=== PATIENT | female | born 1995 | race Asian ===

== ENCOUNTER 2017-03-12 08:31 | Observation (INO) | payer OTHER ==
[2017-03-12] MEDS ORDERED: ONDANSETRON 4 MG/2 ML VIAL ONE ×2 (08:42→14:27)
--- NOTE | 2017-03-12 08:57 | EDPHY ---
H & P Time Seen by Provider: 03/12/17 08:40 HPI/ROS: CHIEF COMPLAINT: Abdominal pain HISTORY OF PRESENT ILLNESS: The patient is a 21-year-old female who presents emergency department with abdominal pain. Patient states the pain makes her "feel like I am passing out. "The patient states her pain started 11:00 p.m. last night. She woke at 5:00 a.m. this morning with more significant pain. She describes diffuse abdominal pain in all quadrants. She has had nausea but no vomiting or diarrhea. No fevers or chills. No dysuria or frequency. The patient states her menstrual period has been irregular. Her last period was early February. She is sexually active but is on control. She has had no vaginal discharge or bleeding. REVIEW OF SYSTEMS: My complete review of systems is negative except as mentioned in the HPI. Past Medical/Surgical History: GERD Past surgical history: Negative Social history: The patient does not smoke use alcohol. Smoking Status: Never smoked Physical Exam: Vitals noted GENERAL: No acute distress, alert. HEENT: Eyes normal to inspection, normal pharynx, no signs of dehydration. NECK: No thyromegaly, no lymphadenopathy, supple. RESPIRATORY: Clear to auscultation bilaterally, no rales, rhonchi or wheezing. CVS: Regular rate and rhythm, no rubs, murmurs, or gallops. ABDOMEN: Soft, minimal diffuse tenderness. No rebound or guarding. Nondistended, no organomegaly. BACK: Normal to inspection, no CVA tenderness. SKIN: Normal color, no rash, warm, dry. No pallor. EXTREMITIES: No pedal edema, no calf tenderness, no Homans sign or cords, no joint swelling. NEURO/PSYCH: Alert and oriented, normal mood and affect, normal motor sensory exam. Constitutional: Initial Vital Signs Temperature (C) 36.4 C 03/12/17 08:33 Heart Rate 84 03/12/17 08:33 Respiratory Rate 19 03/12/17 08:33 Blood Pressure 124/93 H 03/12/17 08:33 O2 Sat (%) 99 03/12/17 08:33 O2 Delivery Mode Room Air Allergies/Adverse Reactions: No Known Allergies Allergy (Unverified 03/12/17 08:33) Home Medications: Medication Instructions Recorded Alon 21 1-20 Tablet 03/12/17 Medical Decision Making - Diagnostics Imaging Results: Imaging Impressions Pelvic/Renal Ultrasound 03/12/17 08:59 Impression: Normal ultrasound pelvis. Findings and recommendations discussed with Emergency Department physician, RAZIA ENG at 9:30 hour, 03/12/2017. Final report concurs with initial preliminary interpretation. Abdomen CT 03/12/17 10:45 Impression: 1. Early acute appendicitis. 2. No bowel obstruction, abscess or pneumoperitoneum. Findings and recommendations discussed with Emergency Department physician, Razia Eng at 1100 hour, 03/12/2017. Final report concurs with initial preliminary interpretation. Cosign: Dr. Kris Gusman. ED Course/Re-evaluation: In the emergency department I discussed possible etiologies with the patient. I answered all her questions. IV was placed. Patient was given Zofran 4 mg IV for nausea. She was given fentanyl 50 mcg IV for pain. Laboratory studies and ultrasound were ordered. 912: [place] [id number]. Ultrasound: Please refer the dictated report by Dr. Jones. No acute disease noted. The patient refused transvaginal exam. On recheck, the patient states she is feeling much better but still has lower abdominal discomfort. She points to the suprapubic and left lower quadrant. Patient consents to a pelvic exam. FEMALE : Patient has a normal external pelvic exam. No lesions or discharge. Speculum exam shows mild white discharge from the cervix. No cervical lesions. Normal appearing cervix. Bimanual exam: Normal, no tenderness to palpation bilaterally, normal ovaries bilaterally, normal uterus. Cultures were sent. Because the patient has significantly elevated white count and still has mild abdominal discomfort a CT scan was ordered. CT of the abdomen pelvis: Please refer the dictated report. Dr. Jones feels patient has early appendicitis. Appendix is enlarged. I discussed the results with the patient. I answered all her questions. I paged Dr. Pope. Dr. Pope was emergency department to evaluate the patient. Patient was given Invanz 1 g IV. Differential Diagnosis: My differential includes but is not limited to small-bowel obstruction, perforation, GERD, pancreatitis, cholecystitis, electrolyte abnormality, sugar abnormality, ovarian cyst, ovarian torsion, , ectopic - Data Points Laboratory Results: Laboratory Results 03/12/17 09:00 03/12/17 09:00 03/12/17 03/12/17 03/12/17 11:00 10:45 10:45 WBC RBC Hgb Hct MCV MCH MCHC RDW Plt Count MPV Neut % (Auto) Lymph % (Auto) Chester % (Auto) Eos % (Auto) Baso % (Auto) Nucleat RBC Rel Count Absolute Neuts (auto) Absolute Lymphs (auto) Absolute Monos (auto) Absolute Eos (auto) Absolute Basos (auto) Absolute Nucleated RBC Immature Gran % Immature Gran # Sodium Potassium Chloride Carbon Dioxide Anion Gap BUN Creatinine Estimated GFR Glucose Calcium Total Bilirubin Conjugated Bilirubin Unconjugated Bilirubin AST ALT Alkaline Phosphatase Total Protein Albumin Lipase Beta HCG, Qual Urine Color PALE YELLOW Urine Appearance CLEAR Urine pH 6.0 (5.0-7.5) Ur Specific Burgin 1.005 (1.002-1.030) Urine Protein NEGATIVE (NEGATIVE) Urine Ketones TRACE H (NEGATIVE) Urine Blood NEGATIVE (NEGATIVE) Urine Nitrate NEGATIVE (NEGATIVE) Urine Bilirubin NEGATIVE (NEGATIVE) Urine Urobilinogen NEGATIVE EU EU (0.2-1.0) Ur Leukocyte Esterase NEGATIVE (NEGATIVE) Urine RBC NONE SEEN /hpf /hpf (0-3) Urine WBC 1-3 /hpf /hpf (0-3) Ur Epithelial Cells TRACE /lpf /lpf (NONE-1+) Urine Mucus TRACE /lpf /lpf (NONE-1+) Urine Glucose NEGATIVE (NEGATIVE) Claudia species DNA Pending C.trachomatis RNA (TMA) Pending Gardnerella DNA Probe Pending N.gonorrhoeae RNA (TMA) Pending Trichomonas DNA Probe Pending 03/12/17 03/12/17 03/12/17 09:00 09:00 09:00 WBC 17.85 10^3/uL H 10^3/uL (3.80-9.50) RBC 4.71 10^6/uL 10^6/uL (4.18-5.33) Hgb 14.5 g/dL g/dL (12.6-16.3) Hct 42.1 % % (38.0-47.0) MCV 89.4 fL fL (81.5-99.8) MCH 30.8 pg pg (27.9-34.1) MCHC 34.4 g/dL g/dL (32.4-36.7) RDW 12.0 % % (11.5-15.2) Plt Count 284 10^3/uL 10^3/uL (150-400) MPV 8.7 fL fL (8.7-11.7) Neut % (Auto) 87.6 % H % (39.3-74.2) Lymph % (Auto) 8.9 % L % (15.0-45.0) Chester % (Auto) 2.5 % L % (4.5-13.0) Eos % (Auto) 0.3 % L % (0.6-7.6) Baso % (Auto) 0.2 % L % (0.3-1.7) Nucleat RBC Rel Count 0.0 % % (0.0-0.2) Absolute Neuts (auto) 15.66 10^3/uL H 10^3/uL (1.70-6.50) Absolute Lymphs (auto) 1.58 10^3/uL 10^3/uL (1.00-3.00) Absolute Monos (auto) 0.44 10^3/uL 10^3/uL (0.30-0.80) Absolute Eos (auto) 0.05 10^3/uL 10^3/uL (0.03-0.40) Absolute Basos (auto) 0.03 10^3/uL 10^3/uL (0.02-0.10) Absolute Nucleated RBC 0.00 10^3/uL 10^3/uL (0-0.01) Immature Gran % 0.5 % % (0.0-1.1) Immature Gran # 0.09 10^3/uL 10^3/uL (0.00-0.10) Sodium 141 mEq/L mEq/L (134-144) Potassium 4.1 mEq/L mEq/L (3.5-5.2) Chloride 104 mEq/L mEq/L (97-110) Carbon Dioxide 22 mEq/l mEq/l (22-31) Anion Gap 15 mEq/L mEq/L (8-16) BUN 11 mg/dL mg/dL (7-23) Creatinine 0.8 mg/dL mg/dL (0.6-1.0) Estimated GFR > 60 Glucose 114 mg/dL H mg/dL (70-100) Calcium 9.7 mg/dL mg/dL (8.5-10.4) Total Bilirubin 0.4 mg/dL mg/dL (0.1-1.4) Conjugated Bilirubin 0.2 mg/dL mg/dL (0.0-0.5) Unconjugated Bilirubin 0.2 mg/dL mg/dL (0.0-1.1) AST 29 IU/L IU/L (14-46) ALT 36 IU/L IU/L (9-52) Alkaline Phosphatase 50 IU/L IU/L (38-126) Total Protein 7.6 g/dL g/dL (6.3-8.2) Albumin 4.4 g/dL g/dL (3.5-5.0) Lipase 77 IU/L IU/L (23-300) Beta HCG, Qual NEGATIVE Urine Color Urine Appearance Urine pH Ur Specific Burgin Urine Protein Urine Ketones Urine Blood Urine Nitrate Urine Bilirubin Urine Urobilinogen Ur Leukocyte Esterase Urine RBC Urine WBC Ur Epithelial Cells Urine Mucus Urine Glucose Claudia species DNA C.trachomatis RNA (TMA) Gardnerella DNA Probe N.gonorrhoeae RNA (TMA) Trichomonas DNA Probe Medications Given: Ertapenem (Invanz) 1 gm IVP ONCE ONE PRN Reason: Protocol Stop: 03/13/17 12:31 Last Admin: 03/12/17 12:42 Dose: 1 gm Discontinued Medications Fentanyl (Sublimaze) 50 mcg IVP EDNOW ONE Stop: 03/12/17 09:00 Last Admin: 03/12/17 09:10 Dose: 50 mcg Sodium Chloride (Ns) 1,000 mls @ 0 mls/hr IV EDNOW ONE; Wide Open PRN Reason: Protocol Stop: 03/12/17 09:00 Last Admin: 03/12/17 09:02 Dose: 1,000 mls Ondansetron HCl (Zofran) 4 mg IVP EDNOW ONE Stop: 03/12/17 09:00 Last Admin: 03/12/17 09:02 Dose: 4 mg Departure - Departure Disposition: [facility] Inpatient Acute Clinical Impression: Abdominal pain Qualifiers: Abdominal location: generalized Qualified Code(s): R10.84 - Generalized abdominal pain Appendicitis Qualifiers: Appendicitis type: acute appendicitis Acute appendicitis type: unspecified acute appendicitis type Qualified Code(s): K35.80 - Unspecified acute appendicitis Condition: Good
[2017-03-12] MEDS ORDERED: NS 1,000 ML IV ONE (08:59)
[2017-03-12] MEDS ORDERED: ONDANSETRON 4 MG/2 ML VIAL IVP ONE (08:59)
[2017-03-12] MEDS ORDERED: fentaNYL 100 MCG/2 ML INJ IVP ONE (08:59)
[2017-03-12 09:11] LABS: % IMMATURE GRANULYOCYTES 0.5 % (0.0-1.1); ABSOLUTE IMMATURE GRANULOCYTES 0.09 10^3/uL (0.00-0.10); ADD DIFF? NO; ADD MORPH? NO; ADD SCAN? NO; ATYPICAL LYMPHOCYTE FLAG 0 (0-99); FRAGMENT RBC FLAG 0 (0-99); HEMATOCRIT 42.1 % (38.0-47.0); HEMOGLOBIN 14.5 g/dL (12.6-16.3); LEFT SHIFT FLG 0 (0-99); LIPEMIA HEMOLYSIS FLAG 90 (0-99); MEAN CELL HEMOGLOBIN 30.8 pg (27.9-34.1); MEAN CELL HEMOGLOBIN CONCENTR. 34.4 g/dL (32.4-36.7); MEAN CELL VOLUME 89.4 fL (81.5-99.8); MEAN PLATELET VOLUME 8.7 fL (8.7-11.7); PLATELET CLUMPS FLAG 0 (0-99); PLATELET COUNT 284 10^3/uL (150-400); RED BLOOD CELL COUNT 4.71 10^6/uL (4.18-5.33)
[2017-03-12 09:30] LABS: ALANINE AMINOTRANSFERASE 36 IU/L (9-52); ALBUMIN 4.4 g/dL (3.5-5.0); ALKALINE PHOSPHATASE 50 IU/L (38-126); ANION GAP 15 mEq/L (8-16); ASPARTATE AMINOTRANSFERASE 29 IU/L (14-46); BILIRUBIN,TOTAL 0.4 mg/dL (0.1-1.4); BILIRUBIN-CONJUGATED 0.2 mg/dL (0.0-0.5); BILIRUBIN-UNCONJUGATED 0.2 mg/dL (0.0-1.1); CALCIUM 9.7 mg/dL (8.5-10.4); CARBON DIOXIDE 22 mEq/l (22-31); CHLORIDE 104 mEq/L (97-110); CREATININE 0.8 mg/dL (0.6-1.0); GLOMERULAR FILTRATION RATE > 60; GLUCOSE 114 mg/dL (70-100); POTASSIUM 4.1 mEq/L (3.5-5.2); SODIUM 141 mEq/L (134-144); TOTAL PROTEIN 7.6 g/dL (6.3-8.2)
[2017-03-12] MEDS ORDERED: IOPAMIDOL (ISOVUE-300) 100 ML BTL ONE (10:48)
[2017-03-12 11:44] LABS: COLOR PALE YELLOW; LEUKOCYTE ESTERASE,URINE NEGATIVE (NEGATIVE); NITRITE,URINE NEGATIVE (NEGATIVE)
[2017-03-12 11:50] LABS: MUCUS TRACE /lpf (NONE-1+); RBC,URINE NONE SEEN /hpf (0-3)
[2017-03-12] MEDS: ERTAPENEM 1 GM VIAL IVP ONE ×2 (12:30→12:42)
[2017-03-12] MEDS ORDERED: NS 250 ML IV ONE (12:30)
[2017-03-12] MEDS ORDERED: ERTAPENEM 1 GM VIAL ONE ×2 (12:34→13:11)
[2017-03-12] MEDS ORDERED: LR 1,000 ML IV ONE (13:06)
[2017-03-12] MEDS ORDERED: HEPARIN 5,000 UNIT/0.5 ML SYR ONE (13:13)
[2017-03-12] MEDS ORDERED: ceFAZolin 1 GM/5 ML SYR ONE (13:14)
--- NOTE | 2017-03-12 13:28 | PDANEPAE ---
ANE Past Medical History - Cardiovascular History Hx Hypertension: No Hx Arrhythmias: No Hx Chest Pain: No Hx Coronary Artery / Peripheral Vascular Disease: No Hx CHF / Valvular Disease: No Hx Palpitations: No - Pulmonary History Hx COPD: No Hx Asthma/Reactive Airway Disease: No Hx Recent Upper Respiratory Infection: No Hx Oxygen in Use at Home: No Hx Sleep Apnea: No - Endocrine History Hx Diabetes: No Hypothyroid: No Hyperthyroid: No Obesity: no - Renal History Hx Renal Disorders: No - Liver History Hx Hepatic Disorders: No - Neurological & Psychiatric Hx Hx Neurological and Psychiatric Disorders: No - Cancer History Hx Cancer: No - Congenital Disorder History Hx Congenital Disorders: No - GI History GERD: mild ANE Review of Systems Review of Systems: ANE Patient History - Allergies Allergies/Adverse Reactions: No Known Allergies Allergy (Unverified 03/12/17 08:33) - Home Medications Home Medications: Alon 21 1-20 Tablet 03/12/17 [Last Taken 03/11/17] - NPO status NPO Since - Liquids (Date): 03/12/17 NPO Since - Liquids (Time): 08:30 NPO Since - Solids (Date): 03/11/17 NPO Since - Solids (Time): 21:00 - Smoking Hx Smoking Status: Never smoked ANE Labs/Vital Signs - Labs Result Diagrams: 03/12/17 09:00 03/12/17 09:00 - Vital Signs Blood Pressure: 134/86 Heart Rate: 86 Respiratory Rate: 17 O2 Sat (%): 97 Height: 154.94 cm Weight: 48.081 kg ANE Physical Exam - Airway Neck exam: FROM Mallampati Score: Class 1 Mouth exam: normal dental/mouth exam - Pulmonary Pulmonary: no respiratory distress - Cardiovascular Cardiovascular: regular rate and rhythym - ASA Status ASA Status: I, E ANE Anesthesia Plan Anesthesia Plan: general endotracheal anesthesia
[2017-03-12] MEDS ORDERED: MIDAZOLAM 2 MG/2 ML VIAL IVP ONE (13:29)
[2017-03-12] MEDS ORDERED: PROPOFOL 200 MG/20 ML VIAL ONE ×2 (13:40→14:08)
[2017-03-12] MEDS ORDERED: fentaNYL 100 MCG/2 ML INJ ONE ×2 (13:42→14:31)
--- NOTE | 2017-03-12 13:47 | GHP ---
[f rep st] PREOP HISTORY AND PHYSICAL DATE OF ADMISSION: 03/12/2017 ADMITTING DIAGNOSIS: Acute appendicitis. HISTORY: Viviana is a 21-year-old [employer] student. She has had a similar episode to the present one at age 13 and was seen in the hospital, but her appendix was not removed. Last evening she had a dinner of brown rice, pasta and pesto. Approximately 10:00 p.m. she had the onset of a "whole abdomen" crampy abdominal pain. She was able to get to sleep, but she was awoken at 5:00 a.m. by sharp pain which was now slightly lower in location and slightly more to the left. She also had nausea. At 8:00 a.m. she went to Urgent Care and was referred to [facility]. She was seen in the ER. An ultrasound was obtained which was normal. A CT scan was obtained which showed a 9 mm appendix with a thickened wall, minimal stranding and no abscess. I was asked to come see her. She does have a history of a recent upper respiratory tract infection. There is no history of diarrhea or prior abdominal surgery. She has not had any antibiotics. She did travel to [facility] in November. There is no history of inflammatory bowel disease. PAST MEDICAL HISTORY: She is a nonsmoker, though she does smoke marijuana occasionally. She drinks 3 glasses of wine per week on the average. She has no known drug allergies. She has a prescription for Adderall for ADD, but rarely takes it. She does take oral contraceptive and a multivitamin. Her only surgery has been wisdom tooth extraction. There is no history of rheumatic fever, tuberculosis, hepatitis, or transfusions. REVIEW OF SYSTEMS: Her last menstrual period was early February and it is due at this point. Her beta HCG is negative. She is sexually active. Review of systems otherwise quite negative. There are no limits on her activities. No history of steroid use. PHYSICAL EXAMINATION: GENERAL: She is anxious and upset, seen sitting in ER room 5. Her skull is normocephalic and atraumatic. She is awake, alert, and oriented x3. LYMPH NODES: Her neck shows no evidence of cervical or supraclavicular lymphadenopathy. There is no axillary lymphadenopathy or inguinal lymphadenopathy. NECK: Her carotids are normal. Her thyroid is unremarkable. LUNGS: Clear to auscultation. CARDIAC: Shows S1, S2 to be normal, with a normal split of S2. ABDOMEN: Shows hypoactive bowel sounds. She is tender with cough inferior and slightly medial to McBurney point on a scale of 1-10 at 5. To palpation her left upper quadrant is 4, left abdomen is 4, left lower quadrant is 4, epigastrium is 5, periumbilical area is 5, suprapubic area is 5, right upper quadrant area is 5, right mid abdomen is 5, right lower quadrant 6. Obturator sign is negative. Psoas sign is positive. Her white blood cell count is 17,900, with 88% neutrophils. Her hematocrit is 42%. Her platelets are 284,000. Her glucose is 114. As mentioned above, her beta HCG is negative. Urine specific gravity is 1.005. Her temperature is 36.4, blood pressure is 124/93, heart rate 84. She has received 1 g of Invanz. On reviewing the CAT scan, I feel there is also evidence of mesenteric adenitis. I have spoken with her mother in [place] by telephone. She understands the situation. Both the patient and her mother agree to proceed with an appendectomy. /[id number]/MODL MTDD
[2017-03-12] MEDS ORDERED: DEXAMETHASONE 4 MG/ML VIAL ONE (14:26)
[2017-03-12] MEDS ORDERED: LIDOCAINE 2% 5 ML SDV ONE (14:27)
[2017-03-12] MEDS ORDERED: ROCURONIUM 50 MG/5 ML VIAL ONE (14:27)
[2017-03-12] MEDS ORDERED: GLYCOPYRROLATE 0.2 MG/1 ML VIAL ONE (14:28)
[2017-03-12] MEDS ORDERED: NEOSTIGMINE METHYLSULFATE 3 MG/3 ML SYR ONE (14:28)
[2017-03-12] MEDS ORDERED: HYDROmorphONE/DILAUDID 1 MG/ML INJ IVP PRN (14:41)
[2017-03-12] MEDS ORDERED: ONDANSETRON 4 MG/2 ML VIAL IVP PRN (14:41)
[2017-03-12] MEDS ORDERED: HYDROmorphone HCL/NS/PF 0.4 MG/2 ML SYR IVP PRN (14:49)
--- NOTE | 2017-03-12 14:53 | POSTOPPROG ---
Post Op Note Date of Operation: 03/12/17 Surgeon: Peng Pope Anesthesia: GET(General Endotracheal) Pre-op Diagnosis: acute appendicitis Post-op Diagnosis: acute unruptured appendicitis Indication: acute appendicitis Procedure: laparoscopic appendectomy Findings: acute unruptured appendicitis Inf/Abcess present in the surg proc area at time of surgery?: No EBL: Minimal Total fluids administered: 600 Complications: none Specimen(s): appendix
[2017-03-12] MEDS ORDERED: LR 500 ML IV PRN (14:55)
[2017-03-12] MEDS ORDERED: NALOXONE HCL 0.4 MG/ML INJ IVP PRN (14:55)
[2017-03-12] MEDS ORDERED: fentaNYL 100 MCG/2 ML INJ IVP PRN (14:55)
[2017-03-12] MEDS ORDERED: PROMETHAZINE HCL 25 MG/ML INJ IVP PRN (14:55)
--- NOTE | 2017-03-12 14:56 | POSTANESTH ---
Post Anesthetic Evaluation Cardiovascular Status: Normal, Stable Respiratory Status: Normal, Stable Level of Consciousness/Mental Status: Can Participate in Eval Pain Control: Adequate, Prn Tx Ordered Nausea/Vomiting Control: Adequate, Prn Tx Ordered Complications Possibly Related to Anesthesia: None Noted
[2017-03-12] MEDS ORDERED: LR 1,000 ML IV SCH (15:00)
--- NOTE | 2017-03-12 15:18 | GOP ---
[f rep st] OPERATIVE REPORT DATE OF OPERATION: 03/12/2017 SURGEON: Peng Pope MD ANESTHESIA: General endotracheal anesthesia. PREOPERATIVE DIAGNOSIS: Acute appendicitis. POSTOPERATIVE DIAGNOSIS: Acute unruptured appendicitis. PROCEDURE PERFORMED: Laparoscopic appendectomy. FINDINGS: Acute unruptured appendicitis. SPECIMENS: Appendix. ESTIMATED BLOOD LOSS: Minimal. INDICATIONS: Acute appendicitis. DESCRIPTION OF PROCEDURE: The patient was placed on the operating table in supine position. After i nduction of adequate general endotracheal anesthesia, the abdomen was clipped, prepped, and draped. A surgical time-out was agreed to by all members of the operative team. A curvilinear incision was made at the umbilicus. Dissection was continued down to the anterior rect us sheath which was elevated between Allis clamps. It was divided in the midline. A pursestring #0 PDS was placed at the fascial edge. The peritoneum was entered. An 11-12 mm disposable Niraj troca r was positioned and insufflation was carried out to 15 mmHg. Both an oblique left lower quadrant incision and a transverse suprapubic incision were made for 5 mm port placement. Intraabdominal insufflation has been carried out. The patient is placed in Trendelenburg. There was a small amount of translucent clear fluid in the pelvis. The appendix was identified. There were a dhesions of some fat to the appendiceal wall. Adhesions were lysed. The mesoappendix was divided do wn to the appendiceal base using a Harmonic scalpel. The appendix was transected with a cuff of cecu m using a powered 35 mm Endo-MANUEL with a vascular load. Hemostasis was excellent. The specimen was removed in the EndoCatch bag. Pneumoperitoneum was re-established. The pelvis was well irrigated with heparin and Ancef containing irrigant. Again, hemostasis was excellent. Photographic documentation was carried out displaying t he right ovary, the left ovary and the uterus. The small bowel was run for a distance of approximately 3 feet. There was no evidence of mesenteric adenitis. There was no Meckel diverticulum. Ports were removed under direct vision. Pneumoperitoneum was released. The infraumbilical fascial d efect was closed with a simple suture of #0 PDS at its midpoint. This was not tied until the pursest ring was tied. The simple fascial closure was now tied. This resulted in excellent closure. Irriga tion of this area was carried out. Hemostasis was excellent. All skin incision were closed with inv erted simple sutures of #4-0 Vicryl. Mastisol and Steri-Strips were placed. Band-Aids were position ed. The patient tolerated the procedure well, was transferred to recovery in stable and satisfactory condition. ABSCESS IDENTIFIED: No FLUIDS: 600 cc COMPLICATIONS: None. /[id number]/MODL
[2017-03-12] MEDS: KETOROLAC 15 MG/1 ML SDV IVP SCH (20:41)
[2017-03-12] MEDS ORDERED: ACETAMINOPHEN 325 MG TAB PO SCH (22:00)
[2017-03-12] MEDS: ACETAMINOPHEN 500 MG TAB PO SCH (22:20)
[2017-03-13] MEDS: KETOROLAC 15 MG/1 ML SDV IVP SCH ×2 (02:43→08:13)
[2017-03-13 03:02] VITALS: PULSE 51; O2SAT 97
[2017-03-13] MEDS: ACETAMINOPHEN 500 MG TAB PO SCH (06:11)
[2017-03-13 08:39] VITALS: BP 93/54; RESP 20; TEMP 97.9
--- NOTE | 2017-03-13 10:12 | PDDCSUM ---
Discharge Summary Discharge Summary: DISCHARGE SUMMARY Date of Admission March 12 Date of Discharge March 13 DISCHARGE DIAGNOSES -acute appendicitis HOSPITAL COURSE The patient was admitted from the ED and taken to the operating room where they underwent an uneventful laparoscopic appendectomy. They were subsequently taken to the PACU and then the general medical floor. The hospital course was uneventful, their diet was advanced to a regular diet which was well tolerated and their pain was well controlled. They were discharged home in stable condition on the afternoon of the 8th DISCHARGE MEDICATIONS Only new medication was [place] DISPOSITION Home FOLLOW UP Follow up with me in the office in 10-14 days for a general post-operative visit
[2017-03-13 10:14] LABS: CHLAMYDIA AMPLIFICATION GENPRB NEGATIVE (NEGATIVE)
== END 2017-03-13 13:14 | disposition home or self-care (01) ==
LOC: FOB 16:10
PROVIDERS: ADMIT Surgery; ATTEND Surgery
PROC: 0DTJ4ZZ Resection of Appendix, Percutaneous Endoscopic Approach (ICD-10-PCS; principal; 2017-03-12 13:15)
DX: K35.80 Unspecified acute appendicitis (principal)
CPT/HCPCS: 44970; 74177; 76856; G0378; 96374; J1100; J1170; J1335; J1885; J2405; J2704; J2710; J3010; Q9967